=== PATIENT | female | born 1990 | race Caucasian/White ===

== ENCOUNTER 2017-02-05 21:12 | Emergency (ER) | payer OTHER ==
--- NOTE | ~2017-02-05 | EKG ---
PATIENT: WALT SINGH UNIT #: [id number] Ventricular Rate: 123 BPM Atrial Rate: 123 BPM P-R Interval: 152 ms QRS Duration: 82 ms Q-T Interval: 326 ms QTC Calculation(Bezet): 466 ms P [place]: 10 degrees Calculated R [place]: 9 degrees Calculated T [place]: 4 degrees Diagnosis Line: Sinus tachycardia Diagnosis Line: Poor R wave progression questionable lead position Diagnosis Line: or body habitus Diagnosis Line: Borderline ECG Diagnosis Line: No previous ECGs available Diagnosis Line: Confirmed by CAROLINE MURILLO MD ([id number]) on Diagnosis Line: 02/06/2017 10:36:57 PM INTERPRETING MD: KYLEE
[~2017-02-05 21:12] MED LIST: GRALISE1 EACH; PROZAC; WELLBUTRIN XL150 M1
[2017-02-05 22:33] LABS: ALBUMIN SERUM 4.5 g/dL (3.5-5.0); ALKALINE PHOSPHATASE 74 U/L (32-92); ALT (SGPT) 31 U/L (10-40); AST (SGOT) 30 U/L (10-42); BILIRUBIN, DIRECT 0.1 mg/dL (0.0-0.2); BILIRUBIN,INDIRECT 0.3 mg/dL (0.0-0.9); BILIRUBIN,TOTAL 0.4 mg/dL (0.2-2.0); BLOOD UREA NITROGEN 11 mg/dL (9-23); BUN/CREATININE RATIO 15.71; CALCIUM SERUM 9.2 mg/dL (8.4-10.2); CARBON DIOXIDE 24 mmol/L (22-31); CHLORIDE 105 mmol/L (100-111); CREATININE SERUM 0.7 mg/dL (0.6-1.4); GLOM FILT RATE Estimated 120.4 mL/min (>60); GLUCOSE FASTING 106 mg/dL (70-110); PROTEIN TOTAL SERUM 7.8 g/dL (6.0-8.3); SALICYLATE <4.0 mg/dL; SODIUM 135 mmol/L (135-145)
[2017-02-05 22:39] LABS: ACETAMINOPHEN <10 ug/mL; ALCOHOL BLOOD <5 mg/dL (0)
[2017-02-05 23:07] LABS: URINE SOURCE CLEAN CATCH
[2017-02-05 23:10] LABS: URINE APPEARANCE CLEAR; URINE BILIRUBIN NEG (NEG); URINE BLOOD NEG (NEG); URINE COLOR YELLOW; URINE GLUCOSE NEG (NEG); URINE KETONE NEG (NEG); URINE LEUKOCYTE ESTERASE NEG (NEG); URINE NITRATE NEG (NEG); URINE PH 6.5 (5-8); URINE PROTEIN NEG (NEG); URINE SPECIFIC GRAVITY 1.017 (1.003-1.035); URINE UROBILINOGEN 0.2 MG/DL (NEG)
[2017-02-05 23:23] LABS: CULTURE INDICATED? NO
[2017-02-05 23:27] LABS: AMPHETAMINE NEG (NEG); BARBITURATES NEG (NEG); BENZODIAZEPINES NEG (NEG); COCAINE NEG (NEG); MARIJUANA NEG (NEG); OPIATES NEG (NEG); TRICYCLIC ANTIDEPRESSANTS NEG (NEG); U METHADONE NEG (NEG)
== END 2017-02-06 03:33 ==
LOC: CED 21:12
PROVIDERS: Emergency Medicine
DX: T42.6X2A Poisoning by other antiepileptic and sedative-hypnotic drugs, intentional self-harm, initial encounter (principal); F32.9 Major depressive disorder, single episode, unspecified
CPT/HCPCS: 36415; 80048; 80076; 80307; 81003; 82947; 84703; 93005; 96360; 96372; 99285; G0480; J3486

== ENCOUNTER 2017-02-06 | Inpatient (IN) | payer OTHER ==
--- NOTE | ~2017-02-06 | HP ---
Unit #: [id number] #: [id number] Patient: COLLEEN SINGH [id number] [facility] [address] [place] [address] [id number] I MR#: [id number] NAME: COLLEEN SINGH ROOM: 30 Age: 26 Sex: F Admission Date: 02/06/2017 : 1990 Attending Physician: Param Moreland M.D. Admitting Physician: Param Moreland M.D. Primary Care Physician: Alexis Salazar M.D. HISTORY AND PHYSICAL HISTORY OF PRESENT ILLNESS Colleen is a 26 year old, admitted to [address] [place] [address], with depression and after an overdose of Ambien. She was treated in a local emergency room and then transferred to [facility] for psychiatric care. PAST MEDICAL HISTORY Nothing significant. PAST SURGICAL HISTORY Nothing reported. ALLERGIES No known drug allergies. SOCIAL HISTORY Smokes one half pack per day, denies alcohol and illicit drug use. FAMILY HISTORY Medically noncontributory. REVIEW OF SYSTEMS CONSTITUTIONAL: No fever or chills. HEENT: Denies any sore throat, ear pain or runny nose. CARDIOVASCULAR: Denies chest pain, irregular heart rhythm or palpitations. CHEST: Denies shortness of breath or cough. No hemoptysis. GASTROINTESTINAL: Denies nausea, vomiting, diarrhea or chronic constipation. ENDOCRINE: Denies history of increased thirst or urination. No recent significant weight loss or gain. GENITOURINARY: Denies dysuria, frequency, or hematuria. SKIN: Denies any rashes. HEMATOLOGIC: Denies history of increased bleeding or bruising. MUSCULOSKELETAL: Denies any hot, swollen joints. No generalized muscle pain. NEUROLOGIC: Denies problems with vision or speech. No frequent, severe headaches. No numbness, tingling or weakness in any extremities. Denies loss of bladder or bowel control. CURRENT MEDICATIONS 1. Trileptal 300 mg daily 2. Celexa 20 mg daily 3. Vyvanse 40 mg daily 4. Benadryl 50 mg q.h.s. p.r.n. Unit #: [id number] #: [id number] Patient: COLLEEN SINGH 5. Wellbutrin 150 mg daily 6. Vistaril p.r.n. 7. Milk of magnesia p.r.n. 8. Maalox p.r.n. 9. Tylenol p.r.n. 10. Nicotine patch 14 mg daily PHYSICAL EXAMINATION GENERAL: Alert, well-nourished, no apparent distress. VITAL SIGNS: Blood pressure 110/74, heart rate 80, respirations 16, and temperature 98.6. WEIGHT: 165 pounds. HEIGHT: 5 feet 2 inches. SKIN: Warm and dry without rash or lesion. HEENT: Normocephalic. TMs not viewed. Oral and nasal passages clear. Conjunctivae clear. PERRLA. EOMs intact. NECK: Supple without lymphadenopathy or thyromegaly. HEART: Regular rate and rhythm without murmur. LUNGS: Clear. ABDOMEN: Soft, nontender. : Not done. EXTREMITIES: No evidence of cyanosis, clubbing or edema. Moves all without focal deficit. NEUROLOGICAL: Grossly within normal limits. Cranial Nerves: II: Visual perez are intact. III, IV AND : Extraocular movements are intact. Pupils are equal, round and reactive to light. V: Facial sensation is grossly normal. VII: Facial movements and expression are normal. VIII: Auditory acuity grossly intact. IX, X: Uvula is midline. Phonation is normal. XI: Patient shrugs shoulders and turns head normally. XII: Tongue protrudes in the midline. Sensory and Motor Function: Sensory and motor sensation is grossly normal. Motor: moves all extremities well. Coordination: Gait is normal. Deep Tendon Reflexes: Intact. IMPRESSION Psychiatric admission. RECOMMENDATIONS Psychiatric, per psychiatrist. MEDICAL I see no contraindications to participating in facility's activities. MEDICAL PROGNOSIS Good. MEDICAL CONDITION Stable. Dictated by... Anne Hurt P.A.-C. for Horacio Gallardo/dena TD: 02/07/2017 08:23 Unit #: [id number] #: [id number] Patient: COLLEEN SINGH JOB #: [id number] HISTORY AND PHYSICAL Page 1 of 1 X Anne Hurt HISTORY AND PHYSICAL
--- NOTE | ~2017-02-06 | DS ---
Unit #: [id number] #: [id number] Patient: WALT SINGH [id number] [facility] [address] [place] [address] [id number] MR#: [id number] NAME: WALT SINGH ROOM: 30 Age: 26 Sex: F Admission Date: 02/06/2017 : 1990 Discharge Date: 02/07/2017 Attending Physician: Param Moreland M.D. Primary Care Physician: Alexis Salazar M.D. DISCHARGE SUMMARY REASON FOR ADMISSION Zhane is a 26-year-old woman who has trouble sleeping and took an additional Ativan and Ambien in addition to her normal sleep medication. Her family reported that they believe she had taken deliberate overdose, but she denied any suicidal, intent or plan. After she was medically cleared in the emergency room, [facility] DIAGNOSTIC STUDIES LABORATORY RESULTS: Please see referring hospital records for their laboratory studies. HOSPITAL COURSE The patient was admitted and placed on suicide precautions. Her home medications except for Ambien were restarted and she had no significant difficulty sleeping with the use of Benadryl. She continued to deny suicidal ideation, intent, or plan. The following day, she was able to once again contract for safety. DISCHARGE DIAGNOSES AXIS I: Major depression. AXIS II: No diagnosis. AXIS III: Recent zolpidem overdose. AXIS IV: AXIS V: DISCHARGE INSTRUCTIONS Follow up with primary care physician. The patient was recommended to use [id number] sleep medications until she is able to obtain further treatment. DISCHARGE MEDICATIONS None were provided. The patient was to continue on Celexa 20 mg daily for depression, Trileptal 300 mg daily for mood stability, Wellbutrin 150 mg every day for depression, and Vyvanse 40 mg daily for ADD. Ambien was discontinued during this admission. CONDITION AT DISCHARGE Improved. PROGNOSIS Fair to good. Unit #: [id number] #: [id number] Patient: WALT SINGH DIET AND ACTIVITY Per primary care doctor. Dictated by... Param Moreland M.D. MRH/modl TD: 02/08/2017 13:06 JOB #: [id number] DISCHARGE SUMMARY Page 1 of 1 X Param Moreland MD DISCHARGE SUMMARY
--- NOTE | ~2017-02-06 | PA ---
Unit #: [id number] #: [id number] Patient: WALT SINGH [id number] [facility] [address] [place] [address] [id number] I MR#: [id number] NAME: WALT SINGH ROOM: 30 Age: 26 Sex: F Admission Date: 02/06/2017 : 1990 Date of Assessment: 02/06/2017 Attending Physician: Param Moreland M.D. Admitting Physician: Param Moreland M.D. Primary Care Physician: Alexis Salazar M.D. PSYCHIATRIC ASSESSMENT INFORMANTS Patient, reliable; OLOP, reliable. CHIEF COMPLAINT Overdose. HISTORY OF PRESENT ILLNESS Zhane Singh is a 26-year-old woman, who says that she has a lot of trouble sleeping and that she took additional Ambien, Ativan, attempted to get additional sleep when her normal dose quit working. She denied that this was suicidal, but the family reported that the prescriptions had recently been filled and there were only four left in the bottle. The patient blamed this on a family member. She has minimal recollection of events in the emergency room. She was admitted for stabilization. PAST PSYCHIATRIC HISTORY The patient has a history of inpatient treatment at this facility and outpatient treatment at [facility]. FAMILY PSYCHIATRIC HISTORY The patient has an aunt with bipolar disorder. SOCIAL HISTORY The patient denied any history of childhood abuse or neglect. She is a heterosexual woman, who is currently enrolled in college. PAST MEDICAL HISTORY Significant for obesity. MEDICATIONS None currently. ALLERGIES No known medication allergies. SUBSTANCE USE HISTORY None. MENTAL STATUS EXAMINATION Zhane presented as a mildly disheveled woman, who appeared her stated age. She was cooperative with the examination. Her speech was slow, but easily understood. Musculoskeletal examination was calm. Her mood was euthymic with a congruent affect. She was alert and fully oriented. Her Unit #: [id number] #: [id number] Patient: WALT SINGH memory and concentration were fair. Her thought processes were goal directed with no psychosis. She denied suicidal ideation, intent, or plan. Insight and judgment were fair. Fund of knowledge and abstraction were fair. ASSETS AND LIABILITIES The patient knows local resources and presents voluntarily for treatment. Liabilities include possible intentional overdose. ADMITTING DIAGNOSES AXIS I: Major depression, F33.2. AXIS II: No diagnosis. AXIS III: Recent zolpidem overdose. AXIS IV: AXIS V: PSYCHIATRIC PLAN The patient was admitted and placed on suicide precautions. Her home medications except for Ambien will be restarted, and we will monitor for a brief washout. I expect she will be able to discharge home with no further medication changes once she stabilizes medically. ESTIMATED LENGTH OF STAY 3 days. Dictated by... Param Moreland M.D. ALVERTO/erica TD: 02/06/2017 13:14 JOB #: [id number] PSYCHIATRIC ASSESSMENT Page 1 of 1 X Param Moreland MD X PSYCHIATRIC ASSESSMENT
== END 2017-02-07 11:15 | disposition home or self-care (01) | DRG 885 ==
LOC: P1S 05:07
DX: F33.9 Major depressive disorder, recurrent, unspecified (principal); E66.9 Obesity, unspecified; F17.210 Nicotine dependence, cigarettes, uncomplicated